=== PATIENT | female | born 1950 | race Caucasian/White ===

== ENCOUNTER 2018-10-19 13:30 | Emergency (ER) | payer OTHER ==
[~2018-10-19] VITALS: Ht 152.4 cm; Wt 60.3 kg
[2018-10-19] MEDS ORDERED: MUPIROCIN22 GM TOP (16:37)
== END 2018-10-19 16:45 | disposition home or self-care (01) ==
LOC: EDBD 13:30 → ER 13:30
DX: S21.002A Unspecified open wound of left breast, initial encounter (principal); X58.XXXA Exposure to other specified factors, initial encounter; Y93.89 Activity, other specified; Y92.89 Other specified places as the place of occurrence of the external cause; Y99.8 Other external cause status